=== PATIENT | female | born 1960 | race Caucasian/White ===

== ENCOUNTER 2017-08-19 07:50 | Day surgery (SDC) | payer BC ==
[2017-08-19] MEDS ORDERED: SIMETHICONE 40 MG/0.6 ML ML ONE (08:03)
[2017-08-19] MEDS: MEPERIDINE HCL/PF 100 MG/ML AMP ONE ×2 (08:45→08:54)
[2017-08-19] MEDS: MIDAZOLAM HCL 5 MG/5 ML VIAL ONE ×3 (08:45→08:49)
[2017-08-19 13:40] VITALS: BP_SYST 135
== END 2017-08-19 10:20 | disposition home or self-care (01) ==
LOC: SMU 07:50 → SDS 07:50
PROVIDERS: ATTEND Internal Medicine Gastroenterology
DX: Z12.11 Encounter for screening for malignant neoplasm of colon (principal); K64.8 Other hemorrhoids
CPT/HCPCS: 45378; J2175; J2250